=== PATIENT | female | born 1965 | race Caucasian/White ===

== ENCOUNTER 2018-06-03 12:36 | Emergency (ER) | payer OTHER ==
[~2018-06-03] VITALS: Ht 162.6 cm; Wt 70.3 kg
[2018-06-03] MEDS ORDERED: NORCO 5-325 TA1 EACH PO (13:55)
[2018-06-03] MEDS ORDERED: IBUPROFEN 600600 M1 PO (13:58)
[2018-06-03 14:45] VITALS: BP 125/65
[2018-06-08] MEDS ORDERED: PROBIOTIC1 EAC1 PO (09:41)
[2018-06-08] MEDS ORDERED: VITAMIN D1000 UNI1 PO (09:41)
[2018-06-08] MEDS ORDERED: IMITREX20 MG NASAL (09:41)
[2018-06-08] MEDS ORDERED: IBUPROFEN 600600 M1 PO (09:56)
== END 2018-06-03 15:05 | disposition home or self-care (01) ==
LOC: ER 12:36
DX: S82.031A Displaced transverse fracture of right patella, initial encounter for closed fracture (principal); Z88.0 Allergy status to penicillin; W00.0XXA Fall on same level due to ice and snow, initial encounter; Y93.89 Activity, other specified; Y92.89 Other specified places as the place of occurrence of the external cause; Y99.8 Other external cause status

== ENCOUNTER 2018-06-09 05:26 | Day surgery (SDC) | payer OTHER ==
[~2018-06-09] VITALS: Ht 162.6 cm; Wt 72.6 kg
--- NOTE | ~2018-06-09 | O ---
[facility] [place] [address] OPERATIVE REPORT Name: ANDRIA LAGUNA Room #: 150-4 [facility]..#: [id number] Admission: 06/09/18 Attend Phys: Juan Francisco Bill MD Discharge: Date of : 67 Report #: [id number] THIS REPORT FOR: //name// CC: Rick Bill DATE OF SERVICE: 06/09/2018 PREOPERATIVE DIAGNOSIS: Right transverse comminuted inferior patellar fracture. POSTOPERATIVE DIAGNOSIS: Right transverse comminuted inferior patellar fracture. PROCEDURE: Inferior pole patellectomy with primary patellar tendon repair, right knee. SURGEON: Juan Francisco Bill MD. ACCOUNT SERVICE ASSOCIATE: June Lance PA-C. INDICATIONS FOR ACCOUNT SERVICE ASSOCIATE: Throughout the case extensive retraction and manipulation of the knee was required. This was afforded to me by my assistant gm of content & delivery. ANESTHESIA: LMA. TOURNIQUET TIME: Approximately 45 minutes. COMPLICATIONS: None. SPECIMENS: None. CONDITION UPON LEAVING THE OPERATING ROOM: Stable. INDICATIONS FOR PROCEDURE: The patient is a 53-year-old female who fell and sustained a right transverse inferior patellar pole fracture with comminution. After discussion with her, she elected for ORIF versus inferior pole patellectomy and tendon repair. DESCRIPTION OF PROCEDURE: Risks, benefits, alternatives, complications were discussed in detail with the patient including but not limited to risk of anesthesia, risk of damage to nerves, arteries, blood vessels, risk for infection, bleeding, risk for continued knee pain and need for reoperation. Informed consent was obtained from the patient. Right knee was appropriately marked in the preoperative holding area. IV clindamycin was given for preoperative antibiotics. She was brought to the operating room and placed in supine position on the operating room table. LMA anesthesia was induced without [facility] [address] [place] [address] OPERATIVE REPORT Name: ANDRIA LAGUNA Room #: 150-4 [facility] Jas[place]ne#: [id number] Admission: 06/09/18 Attend Phys: Juan Francisco Bill MD Discharge: Date of : 67 Report #: [id number] complication. Tourniquet was placed on the right thigh. Right lower extremity was prepped and draped in normal sterile fashion. Timeout was performed properly identifying the patient and procedure as well as the instrumentation. All in the operating room were in agreement. Right lower extremity was exsanguinated, tourniquet was inflated. Tourniquet time was approximately 45 minutes. Standard midline approach to knee was made with #10 blade through the skin. Dissection was taken down sharply and there was an obvious transverse patellar fracture. This was debrided of hematoma and irrigated and then assessed. The inferior fragment was quite small and actually fairly comminuted and it was felt that this would not be repairable given the small size of the fragment. The fragment was then excised sharply with #10 blade. Two #5 FiberWires were then placed through the patellar tendon using a Cove type suture technique. Three holes were then drilled in the patella using a Beath pin and the suture tails were brought up through the superior pole of the patella and tied over and tightly with the knee in extension. This repaired the patellar tendon well to the remaining patella and with minimal tension on the repair even at 45 degrees of flexion. The medial and lateral retinacular tears were then repaired with 0 Vicryl. The skin was closed with 2-0 Vicryl, 3-0 Monocryl, Dermabond and Aquacel dressing was applied. The patient tolerated this procedure well and went to the recovery room under care of anesthesia postoperatively. By: [id number] Juan Francisco Bill MD /ene
[~2018-06-09 05:26] MED LIST: IBUPROFEN 600600 M1 PO; IMITREX20 MG NASAL; NORCO 5-325 TA1 EACH PO; PROBIOTIC1 EAC1 PO; VITAMIN D1000 UNI1 PO
[2018-06-09 07:53] VITALS: BP 121/75
--- NOTE | 2018-06-09 08:37 | EKG ---
[address] [address] ELECTROCARDIOGRAM REPORT Name: ANDRIA LAGUNA Room #: 150-4 [facility]#: [id number] Admission: 06/09/18 Attend Phys: Juan Francisco Bill MD Discharge: Date of : 67 Report #: [id number] THIS REPORT FOR: //name// [facility] Test Date: 2018-06-09 Test Time: 06:33:00 Pat Name: ANDRIA LAGUNA Department: Room: 150 4 Gender: F [employer] Grinding Machine Operator: DIVINE : 1965 Requested By: Juan Francisco Bill Order Number: [id number] MD: Jordy Sheppard Measurements Intervals Miles Rate: 91 P: 58 KS: 172 QRS: 58 QRSD: 88 T: 34 QT: 339 QTc: 418 Interpretive Statements Sinus rhythm Normal tracing No previous ECG available for comparison Electronically Signed On 06-09-2018 8:37:00 [employer] by Jordy Sheppard [email or web address] <ELECTRONICALLY SIGNED> By: Jordy Sheppard MD, [facility] 06/09/18 [id number] [id number] Jordy Sheppard MD, FACC /EPI
[2018-06-09] MEDS ORDERED: PERCOCET PO (08:40)
[2018-06-09 09:33] VITALS: BP 121/75
== END 2018-06-09 10:35 | disposition home or self-care (01) ==
LOC: TBA 05:26 → OR 05:26 → TBA 05:28 → OR 08:44
DX: S82.031A Displaced transverse fracture of right patella, initial encounter for closed fracture (principal); S82.041A Displaced comminuted fracture of right patella, initial encounter for closed fracture; G43.909 Migraine, unspecified, not intractable, without status migrainosus; F17.210 Nicotine dependence, cigarettes, uncomplicated; Z88.0 Allergy status to penicillin; Z79.899 Other long term (current) drug therapy; Z98.890 Other specified postprocedural states; Z90.49 Acquired absence of other specified parts of digestive tract; X58.XXXA Exposure to other specified factors, initial encounter; Y93.89 Activity, other specified; Y92.89 Other specified places as the place of occurrence of the external cause; Y99.8 Other external cause status
CPT/HCPCS: 50010; 50101; 50386; 52256; 53078; 54118; 56527; 56528; 56531; 57091; 62110; 62900; 70005